=== PATIENT | female | born 1985 | race African-American/Black ===

== ENCOUNTER 2022-07-14 09:40 | Inpatient (IN) | payer OTHER ==
[2022-07-14] MEDS: ELECTROLYTE-148 SOLN 1,000 ML IV SCH ×2 (10:55→17:30)
[2022-07-14 11:43] VITALS: BMI 26.3
[2022-07-14 12:37] LABS: INR 0.92 (0.83-1.09); PROTHROMBIN TIME (PATIENT) 10.7 SEC (9.7-13.0)
[2022-07-14 12:39] LABS: ACTIVATED PTT 28.4 SECONDS (25.2-36.5)
[2022-07-14 12:51] LABS: BLOOD UREA NITROGEN 6.4 mg/dL (7-18); CALCIUM 9.5 mg/dL (8.5-10.1)
[2022-07-14 12:52] LABS: BASO % 0.4 % (0-2.0); EOS % 0.6 % (0-4.5); HEMATOCRIT 35.1 % (32.4-45.2); HEMOGLOBIN 11.9 GM/dL (10.7-15.3); LYMPH % 17.8 % (8-40); MCH 26.4 pg (25.7-33.7); MCHC 33.9 g/dl (32.0-36.0); MEAN CELL VOLUME 77.9 fl (80-96); MEAN PLT VOLUME 10.2 fl (7.5-11.1); NEUT % 73.2 % (42.8-82.8); PLATELET COUNT 144 10^3/uL (134-434); RBC 4.51 M/mm3 (3.60-5.2); WHITE BLOOD COUNT 7.3 K/mm3 (4.0-10.0)
[2022-07-14 12:54] LABS: CREATININE 0.6 mg/dL (0.55-1.3)
[2022-07-14] MEDS ORDERED: OXYTOCIN 30 UNITS in 0.9% NS 30 UNIT/500 ML INFUS.BAG IVPB ONE (17:57)
[2022-07-14] MEDS ORDERED: OXYTOCIN 30 UNITS in 0.9% NS 30 UNIT/500 ML INFUS.BAG IVPB SCH (18:00)
[2022-07-14] MEDS ORDERED: OXYTOCIN 20 UNITS in 0.9% NS 20 UNIT/1,000 ML INFUS.BAG IV ONE (23:02)
[2022-07-14] MEDS ORDERED: LIDOCAINE HCL 1% PRESERVATIVE FREE - 30ML VIAL ONE (23:02)
[2022-07-15] MEDS ORDERED: morphine SULFATE/PF 1 MG/2 ML (2cc Syringe - QUVA) ONE (02:53)
[2022-07-15] MEDS ORDERED: FENTANYL CITRATE/PF 50 MCG/ML VIAL ONE (02:53)
[2022-07-15] MEDS ORDERED: PROPOFOL 20 ML ONE ×2 (02:54→02:55)
[2022-07-15] MEDS ORDERED: SUCCINYLCHOLINE CHLORIDE 200 MG/10 ML SYRINGE ONE (02:54)
[2022-07-15] MEDS ORDERED: DEXAMETHASONE SOD PHOSPHATE 4 MG/1 ML VIAL ONE (03:35)
[2022-07-15] MEDS ORDERED: PHENYLEPHRINE HCL 10 MG/1 ML SINGLE DOSE VIAL ONE (03:35)
[2022-07-15] MEDS ORDERED: ceFAZolin SODIUM 1 GM VIAL ONE (03:35)
[2022-07-15] MEDS ORDERED: ONDANSETRON 4 MG/2 ML VIAL ONE (03:35)
[2022-07-15] MEDS ORDERED: METHYLERGONOVINE MALEATE 0.2 MG/1 ML AMP IM PRN (04:02)
[2022-07-15] MEDS ORDERED: AZITHROMYCIN IVPB 500 MG/250 ML BAG IVPB ONE ×2 (04:24→06:40)
[2022-07-15] MEDS ORDERED: morphine SULFATE/PF 1 MG/2 ML (2cc Syringe - QUVA) SPIN ONE (04:24)
[2022-07-15] MEDS: OXYTOCIN 20 UNITS in 0.9% NS 20 UNIT/1,000 ML INFUS.BAG IV SCH ×2 (04:30→16:58)
[2022-07-15] MEDS ORDERED: IBUPROFEN 800 MG/8 ML IJ IVPB ONE (05:57)
[2022-07-15 06:52] LABS: CORD HCO3 20.2 mmHg (20-29); CORD PCO2 46.9 mmHg (30-78); CORD pH 7.253 (7.14-7.44)
[2022-07-15 13:44] LABS: POC NITRAZINE POS
[2022-07-15] MEDS: IBUPROFEN 600 MG TABLET (FP) PO PRN (14:16)
[2022-07-15] MEDS: SIMETHICONE 80 MG TAB.CHEW (FP) PO PRN (14:19)
[2022-07-15 14:43] LABS: BASO % 0.4 % (0-2.0); HEMATOCRIT 29.3 % (32.4-45.2); HEMOGLOBIN 10.1 GM/dL (10.7-15.3); LYMPH % 4.3 % (8-40); MCH 26.8 pg (25.7-33.7); MCHC 34.5 g/dl (32.0-36.0); MEAN CELL VOLUME 77.6 fl (80-96); MEAN PLT VOLUME 10.7 fl (7.5-11.1); MONO % 8.5 % (3.8-10.2); NEUT % 86.8 % (42.8-82.8); PLATELET COUNT 154 10^3/uL (134-434); RBC 3.78 M/mm3 (3.60-5.2); RDW 15.4 % (11.6-15.6); WHITE BLOOD COUNT 18.3 K/mm3 (4.0-10.0)
[2022-07-15 15:47] LABS: ALBUMIN 1.8 g/dl (3.4-5.0); BLOOD UREA NITROGEN 7.8 mg/dL (7-18)
[2022-07-15 15:50] LABS: CREATININE 0.7 mg/dL (0.55-1.3)
[2022-07-15 15:51] LABS: BILIRUBIN,TOTAL 0.7 mg/dL (0.2-1); TOT PROT 4.4 g/dl (6.4-8.2)
[2022-07-15 15:56] LABS: CALCIUM 7.9 mg/dL (8.5-10.1)
[2022-07-16] MEDS: IBUPROFEN 600 MG TABLET (FP) PO PRN ×4 (01:13→23:32)
[2022-07-16] MEDS: SIMETHICONE 80 MG TAB.CHEW (FP) PO PRN ×3 (01:13→10:59)
[2022-07-16] MEDS ORDERED: BISACODYL 10 MG SUPP.RECT RC PRN (04:02)
[2022-07-16] MEDS: OXYTOCIN 20 UNITS in 0.9% NS 20 UNIT/1,000 ML INFUS.BAG IV SCH (06:53)
[2022-07-16 09:34] LABS: BASO % 0.5 % (0-2.0); EOS % 0.4 % (0-4.5); HEMATOCRIT 27.4 % (32.4-45.2); HEMOGLOBIN 9.8 GM/dL (10.7-15.3); LYMPH % 12.2 % (8-40); MCH 27.6 pg (25.7-33.7); MCHC 35.7 g/dl (32.0-36.0); MEAN CELL VOLUME 77.5 fl (80-96); MEAN PLT VOLUME 10.7 fl (7.5-11.1); MONO % 6.6 % (3.8-10.2); NEUT % 80.3 % (42.8-82.8); PLATELET COUNT 167 10^3/uL (134-434); RBC 3.53 M/mm3 (3.60-5.2); RDW 15.5 % (11.6-15.6); WHITE BLOOD COUNT 16.8 K/mm3 (4.0-10.0)
[2022-07-16] MEDS: oxyCODONE HCL 5 MG TABLET PO PRN (11:23)
[2022-07-16] MEDS: ACETAMINOPHEN 325 MG TABLET (FP) PO PRN ×2 (11:24→20:56)
[2022-07-17] MEDS: oxyCODONE HCL 5 MG TABLET PO PRN (11:28)
[2022-07-17] MEDS: ACETAMINOPHEN 325 MG TABLET (FP) PO PRN (11:35)
[2022-07-17] MEDS: SIMETHICONE 80 MG TAB.CHEW (FP) PO PRN (20:20)
[2022-07-17] MEDS: IBUPROFEN 600 MG TABLET (FP) PO PRN (20:20)
[2022-07-17 22:42] VITALS: RESP 18
[2022-07-18] MEDS: IBUPROFEN 600 MG TABLET (FP) PO PRN (05:58)
[2022-07-18 06:31] LABS: HEMATOCRIT 24.5 % (32.4-45.2); HEMOGLOBIN 8.6 GM/dL (10.7-15.3); MCH 27.2 pg (25.7-33.7); MCHC 35.2 g/dl (32.0-36.0); MEAN CELL VOLUME 77.2 fl (80-96); MEAN PLT VOLUME 9.9 fl (7.5-11.1); PLATELET COUNT 157 10^3/uL (134-434); RBC 3.18 M/mm3 (3.60-5.2); RDW 15.8 % (11.6-15.6); WHITE BLOOD COUNT 8.7 K/mm3 (4.0-10.0)
[2022-07-18 09:00] LABS: ANISOCYTOSIS 2+; MACROCYTOSIS 0
[2022-07-18 09:51] VITALS: BP 107/64; PULSE 76; TEMP 98.1
== END 2022-07-18 12:15 | disposition home or self-care (01) | DRG 540 ==
LOC: JDEL 09:40 → JLDR 10:15 → J3W 07-15 08:05
PROVIDERS: ADMIT Student in an Organized Health Care Education/Training Program; ATTEND Student in an Organized Health Care Education/Training Program
PROC: 10H073Z Insertion of Monitoring Electrode into Products of Conception, Via Natural or Artificial Opening (ICD-10-PCS; 2022-07-14)
PROC: 10D00Z1 Extraction of Products of Conception, Low, Open Approach (ICD-10-PCS; 2022-07-15)
PROC: 30233N1 Transfusion of Nonautologous Red Blood Cells into Peripheral Vein, Percutaneous Approach (ICD-10-PCS; principal; 2022-07-17)
DX: O42.02 Full-term premature rupture of membranes, onset of labor within 24 hours of rupture (principal); O72.2 Delayed and secondary postpartum hemorrhage; O76 Abnormality in fetal heart rate and rhythm complicating labor and delivery; O62.1 Secondary uterine inertia; O66.5 Attempted application of vacuum extractor and forceps; Z37.0 Single live birth; Z3A.37 37 weeks gestation of pregnancy
CPT/HCPCS: 36415; 36430; 36600; 80048; 80053; 82803; 83986-QW; 85025; 85610; 85730; 86780; 86850; 86900; 86901; 86922; 88307-TC; C9803-CS; P9058; U0003; U0005